=== PATIENT | female | born 1995 ===

== ENCOUNTER 2017-08-26 21:00 | Inpatient (IN) | payer OTHER ==
--- NOTE | 2017-08-26 19:28 | PDOC.LDHP ---
Labor and Delivery H&P - Physical Exam Vital signs reviewed and normal: yes General: NAD Heart: RRR Lungs: CTAB Abdomen: gravid Extremeties: no edema FHT: category 1 - Vaginal Exam cm dilated: 1 Effacement: 50% Station: -3 - Plan -: Agree with Dr. Campos above. Pt's initial check was /-3. Plan for cytotec induction with q4h labor checks. <Jennifer Harley - Last Filed: 08/27/17 15:02> Chief complaint: scheduled induction HPI: 22 year old at 39.2 wks by 2nd trimester ultrasound/LMP with BIJU of 07/2017. Presents for elective induction of labor for possible LGA infant. Uterine size > dates. Growth ultrasound performed on 08/20/2017 showed EFW of 4002 g. Patient has history of LGA in prior . No complications during current . Patient was checked at office on 08/20/2017 and noted to be 1/10/high and posterior. Current gestational age (weeks): 39 (39.3 wks) Due date: 09/01/17 Dating criteria: second trimester ultrasound Grav: 3 Para: 2 OB History Details: 1. sIUP: Normal OB labs. Negative 1 hr GTT 2. Multip: Prior uncomplicated deliveries 3. Systolic murmur: Likely innocent flow murmur. 4. Insufficient care 5. Bacterial vaginosis s/p treatment 6. GBS negative Current complications: none Abnormal US findings: No Past Medical History: Insignificant Current medications: pre-lien vitamins Social history: none - OB Labs Blood type: O RH: positive Antibody Screen: negative HIV: negative RPR: negative HEPSAg: negative 1 hour GCT: negative GBS: negative Rubella: immune - Assessment L&D Assessment: elective induction at term - Plan Plan: admit to L&D -: Elective IOL - Plan for cytotec induction - Expectant management - q4h cervical checks - Monitor FHT's <Annmarie Campos - Last Filed: 08/27/17 19:05> Allergies/Adverse Reactions: Allergies Allergy/AdvReac Type Severity Reaction Status Date / Time No Known Allergies Allergy Verified 06/01/16 21:18 Review of Systems - Review of Systems Constitutional: denies: chills, diaphoresis, fever EENTM: denies: eye pain, blurred vision Respiratory: denies: cough, stridor, wheezing Cardiology: denies: chest pain, syncope Gastrointestinal/Abdominal: denies: abdominal pain, constipation, diarrhea, nausea, vomiting Genitourinary: reports: other (no vaginal bleeding, contractions, loss of fluid , vaginal discharge). denies: discharge, dysuria, frequency, hematuria, pain Neurological: denies: anxiety, depressed Endocrine: reports: no symptoms reported, intolerance to cold, intolerance to heat Hematologic/Lymphatic: reports: no symptoms reported <Jennifer Harley - Last Filed: 08/27/17 15:02>
[~2017-08-26 21:00] MED LIST: Ibuprofen 800 MG TAB PO PRN; Lidocaine 1% (PF) 30 ML VIAL SC PRN; NS / Oxytocin 40 units/1000ml 1,000 ML IV PRN; Ondansetron HCl/PF 4 MG/2 ML Vial IVP PRN; Promethazine HCl 25 MG/ML VIAL IM PRN
[2017-08-27 14:43] VITALS: BMI 42.9
[2017-08-27] MEDS: Lactated Ringer's 1,000 ML IV SCH ×4 (14:55→21:10)
[2017-08-27 15:31] LABS: Hemoglobin 11.5 g/dL (12.0-16.0); Mean Corpuscular HGB CONC 33.8 g/dL (32.0-36.0); Mean Corpuscular Hemoglobin 29.4 pg (25.0-35.0); Mean Platelet Volume 7.7 fL (7.4-10.4); Platelet Count 239 thou/uL (130-400); RBC Distribution Width 14.5 % (11.5-14.5); Red Blood Cell (RBC) Count 3.91 mill/uL (4.00-5.20); White Blood Cell (WBC) Count 9.4 thou/uL (4.8-10.8)
[2017-08-27] MEDS: Misoprostol 100 MCG TAB VAG SCH ×3 (15:53→18:17)
[2017-08-27 16:02] LABS: HBSAg Index 0.21 S/CO (0-0.99); Hep B Surf Ag Non-Reactive S/CO (NonReactive); Syphilis Antibody Nonreactive (Nonreactive); Syphilis Antibody Index 0.05 S/CO (<1.00 Non-Reactive)
--- NOTE | 2017-08-27 19:03 | PDOC.LDPN ---
Labor & Delivery Progress Note - Subjective Subjective: comfortable - Objective Vital signs reviewed and normal: yes General: NAD, resting Uterine fundus: non tender SVE: Zhen @ 18:50 Dilation: 4 Effacement: 90% Station: -2 FHT: category 1, variability present [place] contractions every: Irregular - Assessment (1) Term Code(s): Z34.80 - ENCOUNTER FOR SUPRVSN OF NORMAL , UNSP TRIMESTER Current Visit: Yes Status: Acute Comment: 22 year old at 39.3 wks presents for elective induction - s/p cytotec - cervical check at 18:50 was /-2 - Will start pitocin - Q2h cervical checks - Continue expectant management - EFW 4002 g on 08/20 Plan: pitocin for augmentation <Annmarie Campos - Last Filed: 08/27/17 19:01> Attending Addendum - Attending Addendum Date/Time: 08/27/172014 I personally evaluated the patient and discussed the management with Dr. Campos IUP@41 weeks undergoing induction for postdates; received 1 dose of cytotec and most recent SVE is 4/80%/-2. Category 1 FHTS. Plan to pitocin in4 hours after cytotec dose. <Nicole Rouse - Last Filed: 08/27/17 20:17>
--- NOTE | 2017-08-27 19:28 | PDOC.EVN ---
Event Note - Event Note Event Note: Case discussed with Dr. Arreola. Briefly this is a 21 yo @ 39.2 weeks admitted for elective induction due to suspected macrosomia. Denies any complaints. (+)FM. Denies any ctx, LOF, VB. POBHx: TSVD x 2; last baby weighed 9pounds; No h/o GDM. Afebrile VSS SVE: 4/80%/-2 Category 1 FHTs. [place] q5-7min. A /P: 1) IUP @39.2 weeks - received 1 dose of cytotec and progressing well. Plan to start pitocin in 1 hour. Reassuring FHTs. GBS negative.
[2017-08-27] MEDS ORDERED: NS w/ Oxytocin 10 units 500 ML IV SCH (20:45)
--- NOTE | 2017-08-28 00:17 | PDOC.LDPN ---
Labor & Delivery Progress Note - Subjective Subjective: comfortable, painful contractions (rates pain as 9/10) - Objective Vital signs reviewed and normal: yes General: NAD, resting, breathing through contractions Uterine fundus: non tender SVE: Noemi Dilation: 5 Effacement: 75% Station: -2 FHT: category 1 (baseline 130, mod yojana, accels present, decels absent) [place] contractions every: 3-5 - Assessment (1) Term Code(s): Z34.80 - ENCOUNTER FOR SUPRVSN OF NORMAL , UNSP TRIMESTER Current Visit: Yes Status: Acute Comment: 22 year old at 39.3 wks presents for elective induction - s/p cytotec - cervical check at 2300 was /-2 - Continue pitocin per protocol - Q2h cervical checks - Will likely AROM at next check - Continue expectant management - EFW 4002 g on 08/20 (2) Encounter for elective induction of labor Code(s): Z34.90 - ENCNTR FOR SUPRVSN OF NORMAL , UNSP, UNSP TRIMESTER Current Visit: Yes Status: Acute (3) LGA (large for gestational age) fetus Code(s): [id number] - Current Visit: Yes Status: Suspected Plan: continue plan of care, labor augmentation <Joaquín Diaz - Last Filed: 08/28/17 00:16> Attending Addendum - Attending Addendum Date/Time: 08/27/17 2300 I personally evaluated the patient and discussed the management with Dr. Diaz I agree with the History, Examination, Assessment and Plan documented above with any addition or exceptions noted below. 22 yo female at 39.3 wks by LMP/22.0 wk sono admitted for elective IOL. R/B/A discussed with patient. Patient progressing well. Will continue pitocin per protocol. \ ABrayMD <Shagufta Haque - Last Filed: 08/28/17 04:12>
--- NOTE | 2017-08-28 02:21 | PDOC.LDPN ---
Labor & Delivery Progress Note - Subjective Subjective: painful contractions (Patient endorses painful ctx's but doing well. No epidural at this time.) - Objective Vital signs reviewed and normal: yes General: NAD, resting, breathing through contractions SVE: 02:15 Dilation: 6.5 Effacement: 75% Station: -1 FHT: category 1 [place] contractions every: q2-3 - Assessment (1) Term Code(s): Z34.80 - ENCOUNTER FOR SUPRVSN OF NORMAL , UNSP TRIMESTER Current Visit: Yes Status: Acute Comment: 22 year old at 39.3 wks presents for elective induction - s/p cytotec - cervical check at 0215 was 6.5/80/-1 - Continue pitocin - Q2h cervical checks - Continue expectant management - EFW 4002 g on 08/20 - GBS negative (2) Encounter for elective induction of labor Code(s): Z34.90 - ENCNTR FOR SUPRVSN OF NORMAL , UNSP, UNSP TRIMESTER Current Visit: Yes Status: Acute (3) LGA (large for gestational age) fetus Code(s): [id number] - Current Visit: Yes Status: Suspected Plan: continue plan of care, pitocin for augmentation <Kim Smith - Last Filed: 08/28/17 02:19> Attending Addendum - Attending Addendum Date/Time: 08/28/17 0422 I personally evaluated the patient and discussed the management with Dr. Diaz I agree with the History, Examination, Assessment and Plan documented above with any addition or exceptions noted below. 22 yo female at 39.4 wks by LMP/22.0 wk sono admitted for elective IOL. Patient progressing well. Will continue pitocin per protocol. Now 6 cm. FHT cat 1. ABrayMD <Shagufta Haque - Last Filed: 08/28/17 04:23>
--- NOTE | 2017-08-28 02:47 | PDOC.LDPN ---
Labor & Delivery Progress Note - Subjective Subjective: painful contractions - Objective Vital signs reviewed and normal: yes General: NAD, resting, breathing through contractions SVE: 02:45 Dilation: 7 Effacement: 75% (80%) Station: -1 FHT: category 1 [place] contractions every: q2-3min AROM: clear fluid IUPC placed: yes - Assessment (1) Term Code(s): Z34.80 - ENCOUNTER FOR SUPRVSN OF NORMAL , UNSP TRIMESTER Current Visit: Yes Status: Acute Comment: 22 year old at 39.3 wks presents for elective induction - s/p cytotec - AROM- clear fluid; cervical check /-1 - Continue pitocin - Q2h cervical checks - Continue expectant management - EFW 4002 g on 08/20 - GBS negative - Pain tolerable and does not desire epidural at this time. (2) Encounter for elective induction of labor Code(s): Z34.90 - ENCNTR FOR SUPRVSN OF NORMAL , UNSP, UNSP TRIMESTER Current Visit: Yes Status: Acute (3) LGA (large for gestational age) fetus Code(s): [id number] - Current Visit: Yes Status: Suspected Plan: continue plan of care, pitocin for augmentation <Kim Smith - Last Filed: 08/28/17 02:45> Attending Addendum - Attending Addendum Date/Time: 08/28/17 0424 I personally evaluated the patient and discussed the management with Dr. Diaz I agree with the History, Examination, Assessment and Plan documented above with any addition or exceptions noted below. 22 yo female at 39.4 wks by LMP/22.0 wk sono admitted for elective IOL. Patient progressing well. Will continue pitocin per protocol. Now 7 cm. FHT cat 1. AROM with clear fluid. Epidural as needed. Tyree <Shagufta Haque - Last Filed: 08/28/17 04:25>
--- NOTE | 2017-08-28 03:19 | PDOC.EVN ---
Event Note - Event Note Event Note: Patient called nursing for epidural due to pain. Presented to bedside at that time for cervical check. She progressed to anterior lip/100%/0. Expectant management.
[2017-08-28] MEDS ORDERED: DISCONTINUE ALL PREVIOUS NARCOTICS FS SCH (03:45)
[2017-08-28] MEDS ORDERED: Bupivacaine 0.5% 20 ML, fentaNYL Citrate/PF 400 MCG in Sodium Chloride 0.9% 72 ML EPIDURAL SCH (03:45)
[2017-08-28] MEDS: Lactated Ringer's 1,000 ML IV SCH (03:49)
[2017-08-28] MEDS ORDERED: Ondansetron HCl/PF 4 MG/2 ML Vial IVP PRN (04:44)
[2017-08-28] MEDS ORDERED: Promethazine HCl 25 MG/ML VIAL IM PRN (04:44)
[2017-08-28] MEDS ORDERED: diphenhydrAMINE 50 MG/ML VIAL IVP PRN (04:44)
[2017-08-28] MEDS ORDERED: Naloxone HCl 0.4 mg/ml Vial IVP PRN ×2 (04:44)
[2017-08-28] MEDS ORDERED: Lactated Ringer's 500 ML IV PRN (04:44)
[2017-08-28] MEDS ORDERED: ePHEDrine/0.9% NaCl/PF SYRINGE 50 mg/10 ml SLOW IVP PRN (04:44)
[2017-08-28] MEDS ORDERED: Eucerin (Mineral Oil/Petrolatum,White) 30 gm Jar TOP PRN (04:44)
[2017-08-28] MEDS ORDERED: Acetaminophen 325 MG TAB PO PRN (04:44)
[2017-08-28] MEDS ORDERED: Fentanyl 4mcg/Marcaine 0.1% Cassette 100 ML EPIDURAL SCH (04:45)
[2017-08-28] MEDS ORDERED: Communication Order-Pharmacy FS SCH (04:45)
--- NOTE | 2017-08-28 05:13 | PDOC.LDPN ---
Labor & Delivery Progress Note - Subjective Subjective: comfortable - Objective Vital signs reviewed and normal: yes General: NAD Uterine fundus: non tender SVE: Nurse @ 05:05 Dilation: 9.5 Effacement: 90% Station: 0 FHT: category 1, variability present [place] contractions every: q1-2 min Procedures: Epidural in place - Assessment (1) Term Code(s): Z34.80 - ENCOUNTER FOR SUPRVSN OF NORMAL , UNSP TRIMESTER Current Visit: Yes Status: Acute Comment: 22 year old at 39.3 wks presents for elective induction - s/p cytotec - Continue pitocin - Q2h cervical checks - Continue expectant management - EFW 4002 g on 08/20 - GBS negative - Epidural placed Plan: continue plan of care
--- NOTE | 2017-08-28 05:48 | PDOC.OPDEL ---
OB Operative/Delivery Note Delivery Dr/Surgeon: Andres Assist: Alba Haque Pre-Delivery Diagnosis: elective induction Weeks gestation: 39 Anesthesia: epidural - Findings A Sex: male Weight: 4.486 kg - 1 min: 6 - 5 min: 9 - Additional Findings/Plan Placenta delivered: spontaneous Repaired Obstetrical Laceration: 1st degree Estimated blood loss: 150 mL Compilations/Other Findings: Pre-op Diagnosis: 1. Term intrauterine 2. Elective induction of labor for LGA, size>dates 2. Hx of LGA Post-op Diagnosis: 1. Term intrauterine , delivered 2. same as above 3. 1st degree perineal laceration s/p repair Indications: A 22 y/o female presents to L&D for elective induction of labor for LGA Delivery Note: This is 22 yo F @ 39.3 wks who delivered a viable M at 5:21 on 08/28/2017. Following an uneventful antepartum course, a male was delivered over an intact perineum in the occipitoanterior position. Shoulder dystocia was noted upon trying to deliver anterior shoulder. Uma and suprapubic pressure were utilized which helped to deliver anterior shoulder all within 30 seconds. Anterior Shoulder and then remainder of the body delivered. Nuchal cord x1. The head was held down and mouth and nares were bulb suctioned. Cord clamped and cut and cord blood collected. Placenta delivered intact with a 3 vessel cord noted. Fundal massage was performed and the fundus was firm. The cervix and vagina were inspected and a 1st degree perineal laceration was noted and repaired using 2-0 vicryl in the usual fashion with good approximation and hemostasis. Infant went to nursery in good condition for routine care. Apgars were 6/9 at 1 & 5 minutes, respectively. Patient tolerated delivery well and went to after routine recovery/care. Post delivery plan: routine recovery
[2017-08-28] MEDS ORDERED: NS / Oxytocin 40 units/1000ml 1,000 ML IV SCH (08:00)
[2017-08-28] MEDS ORDERED: Bisacodyl 10 MG SUPP PR PRN (08:00)
[2017-08-28] MEDS ORDERED: Benzocaine/Menthol 20-0.5% 60 ML CAN TOP PRN (08:00)
[2017-08-28] MEDS ORDERED: Milk Of Magnesia 30 ML UDCUP PO PRN (08:00)
[2017-08-28] MEDS ORDERED: Adacel (T-DAP) 0.5 ML VIAL IM ONE (08:00)
[2017-08-28] MEDS ORDERED: Preparation H Ointment 28 GM TUBE PR PRN (08:00)
[2017-08-28] MEDS ORDERED: Lanolin Ointment 7 GM TUBE TOP PRN (08:00)
[2017-08-28] MEDS: Ferrous Sulfate 325 MG TAB PO SCH ×2 (09:23→17:41)
[2017-08-28] MEDS: Docusate Calcium (SURFAK) 240 MG CAP PO SCH (09:23)
[2017-08-28] MEDS: Prenatal Vitamin 1 TAB PO SCH (09:23)
[2017-08-28] MEDS: Ibuprofen 800 MG TAB PO SCH ×2 (09:24→17:46)
[2017-08-28] MEDS ORDERED: Bupivacaine/Epinephrine 0.25% 30 ML VIAL ONE (17:29)
[2017-08-28] MEDS: Misoprostol 100 MCG TAB VAG SCH (22:14)
[2017-08-29] MEDS: Ibuprofen 800 MG TAB PO SCH ×3 (03:07→14:36)
[2017-08-29] MEDS: Docusate Calcium (SURFAK) 240 MG CAP PO SCH ×2 (03:07→09:16)
[2017-08-29 08:13] VITALS: BP 114/56; TEMP 98.5
--- NOTE | 2017-08-29 08:41 | PDOC.PP ---
Addendum entered and electronically signed by Annmarie Campos DO 08/29/17 08 :46: Addendum to assessments: 1st degree perineal laceration s/p repair; hemostatic. Original Note: Post Progress Note Post Day #: 1 Subjective: Patient doing well. No significant overnight events. Lochia wnl. Ambulating without difficulty. Would prefer to go home today. PO intake tolerated: yes Flatus: yes Ambulation: yes Vital Signs (12 hours) Temp Pulse Resp BP 08/29/17 08:12 98.5 F 67 18 114/56 L 08/29/17 07:57 99.2 F 70 16 08/29/17 00:00 99.2 F 70 16 109/55 L Weight Weight 120.656 kg - Physical Examination General: NAD Cardiovascular: no m/r/g, RRR Respiratory: clear to auscultation bilaterally, non-labored breathing Abdominal: + bowel sounds, lochia (wnl), no distention, appropriately TTP Fundus firm & at: above umbilicus, irregular contour Skin: no rash Neurological: no gross focal deficits Psychiatric: A&Ox3, normal affect Result Diagrams: 08/27/17 14:55 Additional Labs: Post Labs Blood Type O POSITIVE 08/27/17 14:55 Hep Bs Antigen Non-Reactive S/CO (NonReactive) 08/27/17 14:55 (1) Term delivered Code(s): O80 - ENCOUNTER FOR FULL-TERM UNCOMPLICATED DELIVERY Status: Acute Comment: 22 year old delivered LGA M infant at 05:21 on 08/28/2017 via - Uncomplicated PP course - Contraception: IUD - infant without difficulties - Follow up in 6 weeks for PP visit - Plan for d/c home today pending bilirubin levels <Annmarie Campos - Last Filed: 08/29/17 08:39> Vital Signs (12 hours) Temp Pulse Resp BP 08/29/17 08:12 98.5 F 67 18 114/56 L 08/29/17 07:57 99.2 F 70 16 08/29/17 00:00 99.2 F 70 16 109/55 L Weight Weight 120.656 kg Result Diagrams: 08/27/17 14:55 Additional Labs: Post Labs Blood Type O POSITIVE 08/27/17 14:55 Hep Bs Antigen Non-Reactive S/CO (NonReactive) 08/27/17 14:55 <Nicole Rouse - Last Filed: 08/29/17 10:56> Attending Addendum - Attending Addendum Date/Time: 08/29/17 1054 I personally evaluated the patient and discussed the management with Dr. Campos I agree with the History, Examination, Assessment and Plan documented above with any addition or exceptions noted below- Patient without complaints. Ambulating/voiding. Afebrile VSS A/P: 1) PPD#1 s/p - continue routine care. Plan to d/c home today at 24 hours. <Nicole Rouse - Last Filed: 08/29/17 10:56>
[2017-08-29] MEDS: Prenatal Vitamin 1 TAB PO SCH (09:16)
[2017-08-29] MEDS: Ferrous Sulfate 325 MG TAB PO SCH (09:18)
== END 2017-08-29 15:00 | disposition home or self-care (01) | DRG 774 ==
LOC: L&D 08-27 13:59 → 3SW 08-28 07:51
PROVIDERS: ADMIT Family Medicine; ATTEND Family Medicine
PROC: 3E0P7VZ Introduction of Hormone into Female Reproductive, Via Natural or Artificial Opening (ICD-10-PCS; 2017-08-27)
PROC: 10E0XZZ Delivery of Products of Conception, External Approach (ICD-10-PCS; principal; 2017-08-28)
PROC: 3E033VJ Introduction of Other Hormone into Peripheral Vein, Percutaneous Approach (ICD-10-PCS; 2017-08-28)
PROC: 10907ZC Drainage of Amniotic Fluid, Therapeutic from Products of Conception, Via Natural or Artificial Opening (ICD-10-PCS; 2017-08-28)
PROC: 0HQ9XZZ Repair Perineum Skin, External Approach (ICD-10-PCS; 2017-08-28)
DX: O36.63X0 Maternal care for excessive fetal growth, third trimester, not applicable or unspecified (principal); O99.42 Diseases of the circulatory system complicating childbirth; O66.0 Obstructed labor due to shoulder dystocia; O69.1XX0 Labor and delivery complicated by cord around neck, with compression, not applicable or unspecified; O70.0 First degree perineal laceration during delivery; Z3A.39 39 weeks gestation of pregnancy; R01.0 Benign and innocent cardiac murmurs; O09.33 Supervision of pregnancy with insufficient antenatal care, third trimester; Z86.19 Personal history of other infectious and parasitic diseases; Z87.42 Personal history of other diseases of the female genital tract
CPT/HCPCS: 51702; 85027; 86780; 86850; 86900; 86901; 87340; J2001; J3010; J3490; J7050